=== PATIENT | male | born 1950 | race Caucasian/White ===

== ENCOUNTER 2019-08-02 08:20 | Inpatient (IN) ==
[2019-08-02] MEDS ORDERED: CeFAZolin Syr 2,000MG/20 ML 2,000 MG/20 ML SYRINGE IVPB ONE (08:42)
[2019-08-02] MEDS ORDERED: Ringers Solution, Lactated 1,000 ML IVC SCH ×2 (08:45→14:30)
[2019-08-02] MEDS ORDERED: Celecoxib 200 MG CAPSULE PO ONE (09:25)
[2019-08-02] MEDS ORDERED: Gabapentin 300 MG CAPSULE PO ONE (09:25)
[2019-08-02] MEDS ORDERED: Ondansetron 4 MG/2 ML VIAL IVP ONE (09:26)
[2019-08-02] MEDS ORDERED: *HR* Promethazine 25 MG/ML VIAL IVP PRN ×2 (09:26→14:30)
[2019-08-02] MEDS ORDERED: *HR* OxyCODONE Immed Rel 5 MG TABLET PO PRN ×2 (09:26→14:30)
[2019-08-02] MEDS ORDERED: *HR* OxyCODONE Immed Rel 5 MG TABLET PO ONE (09:26)
[2019-08-02] MEDS ORDERED: ROPIVACAINE/PF/NS 0.25% 1 EACH SYRINGE INTRAART ONE (09:39)
[2019-08-02] MEDS ORDERED: *HR* FentaNYL (PF) 100 MCG/2 ML VIAL ONE (10:08)
[2019-08-02] MEDS ORDERED: *HR* Midazolam HCl 2 MG/2 ML VIAL ONE (10:08)
[2019-08-02] MEDS ORDERED: Ethanol\\Acetic Acid\\Na Ace\\Ben 1,000 ML IRRIG.SOLN IR ONE (10:16)
[2019-08-02] MEDS ORDERED: Propofol 500 MG/50 ML INFUS..BTL ONE ×2 (10:33→11:48)
[2019-08-02] MEDS ORDERED: Tranexamic Acid 1,000 MG/10 ML VIAL ONE (11:11)
[2019-08-02] MEDS ORDERED: Dexamethasone 4 MG/ML VIAL ONE ×2 (11:22→11:23)
[2019-08-02] MEDS ORDERED: Ondansetron 4 MG/2 ML VIAL ONE (11:23)
[2019-08-02] MEDS ORDERED: *HR* PHENYLEPHRINE 1,000 MCG/10 ML SYRINGE IVP ONE ×2 (11:23→11:50)
[2019-08-02] MEDS ORDERED: EPHEDrine 50 MG/ML VIAL ONE (11:37)
[2019-08-02] MEDS: *HR* HYDROmorphone (PF) 1 MG/ML SYRINGE IVP PRN ×2 (13:07→13:15)
[2019-08-02 13:28] LABS: Hematocrit 38.9 % (37.5-50.1); Hemoglobin 13.2 g/dL (12.9-16.9)
[2019-08-02] MEDS ORDERED: traMADol 50 MG TABLET PO PRN (14:30)
[2019-08-02] MEDS ORDERED: MOM Conc 10 ML UD.LIQ PO PRN (14:30)
[2019-08-02] MEDS ORDERED: Sennosides 8.6 MG TABLET PO PRN (14:30)
[2019-08-02] MEDS ORDERED: Ondansetron 4 MG/2 ML VIAL IVP PRN (14:30)
[2019-08-02] MEDS ORDERED: Naloxone 0.4 MG/ML INJ IVP PRN (14:30)
[2019-08-02] MEDS ORDERED: Temazepam 15 MG CAPSULE PO PRN (14:30)
[2019-08-02] MEDS ORDERED: HYDROcodone BIT/Homatropine 5 MG TABLET PO PRN (14:30)
[2019-08-02] MEDS: Ascorbic Acid 500 MG TABLET PO SCH (17:30)
[2019-08-02] MEDS: *HR* Enoxaparin 30 MG/0.3 ML SYRINGE SQ SCH (17:30)
[2019-08-02] MEDS ORDERED: *HR* Enoxaparin 30 MG/0.3 ML SYRINGE SQ SCH (18:00)
[2019-08-02] MEDS ORDERED: Lisinopril 20 MG TABLET PO SCH (21:00)
[2019-08-02] MEDS ORDERED: amLODIPine 5 MG TABLET PO SCH (21:00)
[2019-08-03] MEDS: *HR* Enoxaparin 30 MG/0.3 ML SYRINGE SQ SCH (05:28)
[2019-08-03 05:44] LABS: Basophils % 0.2 %; Hematocrit 37.8 % (37.5-50.1); Immature Granulocytes % 0.6 % (0-4); Lymphocytes # 1.6 K/mcL (0.6-4.6); Lymphocytes % 12.4 %; Mean Corpuscular HGB Conc 34.4 g/dL (31.6-35.5); Mean Corpuscular Hemoglobin 30.6 pg (28.0-33.3); Mean Corpuscular Volume 88.9 fL (83.0-100.0); Mean Platelet Volume 11.6 fL (9.4-12.4); Monocytes % 7.3 %; Neutrophils # 10.4 K/mcL (1.6-8.9); Platelet Count 205 K/mcL (140-400); Red Blood Count 4.25 M/mcL (4.19-5.50); Red Cell Distribution Width 12.7 % (11.5-14.5); Segmented Neutrophils % 79.5 %; White Blood Count 13.1 K/mcL (4.3-11.1)
[2019-08-03 06:00] LABS: BUN/Creatinine Ratio 18 (6-26); Blood Urea Nitrogen 16 mg/dL (8-23); Calcium 9.1 mg/dL (8.6-10.3); Carbon Dioxide 22 mEq/L (23-29); Chloride 101 mEq/L (98-107); Glucose 170 mg/dL (70-105); Osmolality,Calculated 285 (280-300); Potassium 4.2 mEq/L (3.5-5.1); Sodium 135 mEq/L (136-145); eGFR For African Americans > 60 (> 60); eGFR For Non-African Americans > 60 (> 60)
[2019-08-03] MEDS: Ascorbic Acid 500 MG TABLET PO SCH (08:52)
[2019-08-03] MEDS ORDERED: Multivit/Ca/Min/Fe/FA 1 TAB TABLET PO SCH (09:00)
[2019-08-03 11:13] VITALS: BP 115/75
== END 2019-08-03 16:40 | disposition home health service (06) | DRG 470 ==
LOC: SAMDAY 08:20 → 3NENU 14:25
PROVIDERS: ADMIT Orthopaedic Surgery; ATTEND Orthopaedic Surgery

== ENCOUNTER 2021-12-17 11:15 | Inpatient (IN) ==
[2021-12-17 11:42] LABS: Basophils # 0.1 K/mcL (0.0-0.2); Basophils % 0.3 %; Eosinophils % 0.2 %; Hematocrit 46.5 % (37.5-50.1); Hemoglobin 15.8 g/dL (12.9-16.9); Immature Granulocytes % 1.7 % (0-4); Lymphocytes # 0.9 K/mcL (0.6-4.6); Lymphocytes % 5.3 %; Mean Corpuscular Hemoglobin 30.4 pg (28.0-33.3); Mean Corpuscular Volume 89.4 fL (83.0-100.0); Mean Platelet Volume 9.6 fL (9.4-12.4); Monocytes # 0.9 K/mcL (0.0-1.3); Monocytes % 5.3 %; Neutrophils # 14.5 K/mcL (1.6-8.9); Platelet Count 223 K/mcL (140-400); Segmented Neutrophils % 87.2 %; White Blood Count 16.6 K/mcL (4.3-11.1)
[2021-12-17 12:14] LABS: BUN/Creatinine Ratio 20 (6-26); Blood Urea Nitrogen 17 mg/dL (8-23); Calcium 8.6 mg/dL (8.6-10.3); Carbon Dioxide 26 mEq/L (23-29); Chloride 98 mEq/L (98-107); Glucose 161 mg/dL (70-105); Osmolality,Calculated 281 (280-300); Potassium 4.5 mEq/L (3.5-5.1); Sodium 133 mEq/L (136-145); Troponin I 0.09 ng/mL (< 0.04); eGFR For African Americans > 60 (> 60); eGFR For Non-African Americans > 60 (> 60)
[2021-12-17] MEDS ORDERED: Naloxone 0.4 MG/ML INJ IVP PRN (14:10)
[2021-12-17 14:43] LABS: C-Reactive Protein 152 mg/L (Less than 10); Ferritin 955 ng/mL (20-250); Lactate Dehydrogenase 382 Units/L (140-271)
[2021-12-17] MEDS ORDERED: Isovue-370 500 ML BOTTLE IVP ONE (15:00)
[2021-12-17] MEDS: Ipratropium 1 PUFF INHALER IH SCH ×3 (15:51→23:18)
[2021-12-17] MEDS ORDERED: *HR* Heparin 5,000 UNIT/ML VIAL IVP PRN ×2 (18:46)
[2021-12-17] MEDS ORDERED: *HR* Heparin 5,000 UNIT/ML VIAL IVP ONE (18:46)
[2021-12-17 19:16] LABS: Hematocrit 43.7 % (37.5-50.1); Mean Corpuscular HGB Conc 34.3 g/dL (31.6-35.5); Mean Corpuscular Hemoglobin 30.5 pg (28.0-33.3); Mean Platelet Volume 9.7 fL (9.4-12.4); Platelet Count 184 K/mcL (140-400); Red Blood Count 4.91 M/mcL (4.19-5.50); Red Cell Distribution Width 12.9 % (11.5-14.5); White Blood Count 12.2 K/mcL (4.3-11.1)
[2021-12-17 19:23] LABS: Heparin anti-factor XA UFH < 0.04 IU/mL (0.30-0.70)
[2021-12-17 19:24] LABS: INR 1.4
[2021-12-17] MEDS: Heparin 25,000UNIT/250ML 1/2NS 25,000 UNIT/250 ML IV.SOLN IVC SCH (20:08)
[2021-12-18 02:08] LABS: Basophils % 0.3 %; Eosinophils % 0.1 %; Hematocrit 42.9 % (37.5-50.1); Hemoglobin 14.6 g/dL (12.9-16.9); Immature Granulocytes % 1.5 % (0-4); Lymphocytes # 1.4 K/mcL (0.6-4.6); Lymphocytes % 10.6 %; Mean Corpuscular Hemoglobin 30.7 pg (28.0-33.3); Mean Corpuscular Volume 90.1 fL (83.0-100.0); Mean Platelet Volume 9.7 fL (9.4-12.4); Monocytes # 0.8 K/mcL (0.0-1.3); Monocytes % 5.5 %; Neutrophils # 11.2 K/mcL (1.6-8.9); Platelet Count 209 K/mcL (140-400); Red Blood Count 4.76 M/mcL (4.19-5.50); White Blood Count 13.6 K/mcL (4.3-11.1)
[2021-12-18 02:27] LABS: Alanine Aminotransferase 56 Units/L (7-52); Albumin 2.8 g/dL (3.5-5.7); Albumin/Globulin Ratio 0.8 (1.1-2.2); Alkaline Phosphatase 75 Units/L (34-104); Aspartate Amino Transferase 33 Units/L (13-39); BUN/Creatinine Ratio 25 (6-26); Blood Urea Nitrogen 19 mg/dL (8-23); Calcium 8.3 mg/dL (8.6-10.3); Carbon Dioxide 25 mEq/L (23-29); Chloride 101 mEq/L (98-107); Globulin 3.4 g/dL (2.4-3.5); Glucose 138 mg/dL (70-105); Osmolality,Calculated 280 (280-300); Potassium 4.6 mEq/L (3.5-5.1); Sodium 133 mEq/L (136-145); Total Protein 6.2 g/dL (6.4-8.9); eGFR For African Americans > 60 (> 60); eGFR For Non-African Americans > 60 (> 60)
[2021-12-18] MEDS: Ipratropium 1 PUFF INHALER IH SCH ×6 (04:16→23:31)
[2021-12-18] MEDS ORDERED: *HR* Enoxaparin 40 MG/0.4 ML SYRINGE SQ SCH (06:00)
[2021-12-18] MEDS: Heparin 25,000UNIT/250ML 1/2NS 25,000 UNIT/250 ML IV.SOLN IVC SCH (13:03)
[2021-12-18] MEDS: Apixaban 5 MG TABLET PO SCH (21:22)
[2021-12-19 02:32] LABS: Basophils % 0.2 %; Eosinophils # 0.1 K/mcL (0.0-0.6); Eosinophils % 0.4 %; Hematocrit 41.3 % (37.5-50.1); Hemoglobin 13.7 g/dL (12.9-16.9); Immature Granulocytes % 1.6 % (0-4); Lymphocytes # 1.8 K/mcL (0.6-4.6); Mean Corpuscular HGB Conc 33.2 g/dL (31.6-35.5); Mean Corpuscular Hemoglobin 29.7 pg (28.0-33.3); Mean Corpuscular Volume 89.4 fL (83.0-100.0); Monocytes % 7.2 %; Neutrophils # 10.6 K/mcL (1.6-8.9); Platelet Count 219 K/mcL (140-400); Red Blood Count 4.62 M/mcL (4.19-5.50); Red Cell Distribution Width 13.1 % (11.5-14.5); Segmented Neutrophils % 77.6 %; White Blood Count 13.7 K/mcL (4.3-11.1)
[2021-12-19 02:55] LABS: Alanine Aminotransferase 68 Units/L (7-52); Albumin 2.7 g/dL (3.5-5.7); Albumin/Globulin Ratio 0.9 (1.1-2.2); Alkaline Phosphatase 80 Units/L (34-104); Aspartate Amino Transferase 48 Units/L (13-39); BUN/Creatinine Ratio 27 (6-26); Bilirubin,Total 0.9 mg/dL (0.3-1.0); Blood Urea Nitrogen 20 mg/dL (8-23); C-Reactive Protein 76 mg/L (Less than 10); Calcium 8.1 mg/dL (8.6-10.3); Carbon Dioxide 23 mEq/L (23-29); Chloride 100 mEq/L (98-107); Glucose 109 mg/dL (70-105); Lactate Dehydrogenase 283 Units/L (140-271); Magnesium 2.2 mg/dL (1.6-2.6); Osmolality,Calculated 275 (280-300); Potassium 4.2 mEq/L (3.5-5.1); Sodium 131 mEq/L (136-145); Total Protein 5.7 g/dL (6.4-8.9); eGFR For African Americans > 60 (> 60); eGFR For Non-African Americans > 60 (> 60)
[2021-12-19 03:07] LABS: Ferritin 1045 ng/mL (20-250)
[2021-12-19] MEDS: Ipratropium 1 PUFF INHALER IH SCH ×6 (04:00→23:35)
[2021-12-19] MEDS: Apixaban 5 MG TABLET PO SCH ×2 (08:08→19:51)
[2021-12-19] MEDS ORDERED: Furosemide 20 MG/2 ML VIAL IVP SCH (09:00)
[2021-12-20 02:45] LABS: Basophils % 0.3 %; Eosinophils # 0.1 K/mcL (0.0-0.6); Eosinophils % 0.9 %; Hematocrit 39.9 % (37.5-50.1); Hemoglobin 13.7 g/dL (12.9-16.9); Immature Granulocytes % 1.4 % (0-4); Lymphocytes # 1.6 K/mcL (0.6-4.6); Lymphocytes % 12.7 %; Mean Corpuscular HGB Conc 34.3 g/dL (31.6-35.5); Mean Corpuscular Hemoglobin 30.6 pg (28.0-33.3); Mean Corpuscular Volume 89.1 fL (83.0-100.0); Mean Platelet Volume 9.6 fL (9.4-12.4); Monocytes # 0.9 K/mcL (0.0-1.3); Monocytes % 7.1 %; Neutrophils # 9.7 K/mcL (1.6-8.9); Platelet Count 223 K/mcL (140-400); Red Blood Count 4.48 M/mcL (4.19-5.50); Red Cell Distribution Width 12.9 % (11.5-14.5); Segmented Neutrophils % 77.6 %; White Blood Count 12.5 K/mcL (4.3-11.1)
[2021-12-20 03:04] LABS: Alanine Aminotransferase 79 Units/L (7-52); Albumin 2.8 g/dL (3.5-5.7); Albumin/Globulin Ratio 0.9 (1.1-2.2); Alkaline Phosphatase 77 Units/L (34-104); Aspartate Amino Transferase 47 Units/L (13-39); BUN/Creatinine Ratio 23 (6-26); Blood Urea Nitrogen 18 mg/dL (8-23); Calcium 8.3 mg/dL (8.6-10.3); Carbon Dioxide 26 mEq/L (23-29); Chloride 99 mEq/L (98-107); Globulin 3.1 g/dL (2.4-3.5); Glucose 126 mg/dL (70-105); Osmolality,Calculated 275 (280-300); Potassium 4.4 mEq/L (3.5-5.1); Sodium 131 mEq/L (136-145); Total Protein 5.9 g/dL (6.4-8.9); eGFR For African Americans > 60 (> 60); eGFR For Non-African Americans > 60 (> 60)
[2021-12-20] MEDS: Ipratropium 1 PUFF INHALER IH SCH ×6 (03:36→23:23)
[2021-12-20] MEDS: Apixaban 5 MG TABLET PO SCH ×2 (08:14→20:40)
[2021-12-20] MEDS: Furosemide 20 MG/2 ML VIAL IVP SCH ×2 (08:14→16:33)
[2021-12-21] MEDS: Ipratropium 1 PUFF INHALER IH SCH ×6 (03:47→23:47)
[2021-12-21 07:07] LABS: Basophils % 0.2 %; Eosinophils % 0.2 %; Hematocrit 40.8 % (37.5-50.1); Hemoglobin 14.2 g/dL (12.9-16.9); Immature Granulocytes % 1.6 % (0-4); Lymphocytes # 1.5 K/mcL (0.6-4.6); Mean Corpuscular HGB Conc 34.8 g/dL (31.6-35.5); Mean Corpuscular Hemoglobin 30.7 pg (28.0-33.3); Mean Corpuscular Volume 88.3 fL (83.0-100.0); Mean Platelet Volume 9.7 fL (9.4-12.4); Monocytes % 6.8 %; Neutrophils # 11.9 K/mcL (1.6-8.9); Platelet Count 252 K/mcL (140-400); Red Blood Count 4.62 M/mcL (4.19-5.50); Segmented Neutrophils % 81.2 %; White Blood Count 14.7 K/mcL (4.3-11.1)
[2021-12-21 07:28] LABS: Alanine Aminotransferase 91 Units/L (7-52); Albumin 2.8 g/dL (3.5-5.7); Albumin/Globulin Ratio 0.8 (1.1-2.2); Alkaline Phosphatase 71 Units/L (34-104); Aspartate Amino Transferase 47 Units/L (13-39); BUN/Creatinine Ratio 30 (6-26); Bilirubin,Total 0.9 mg/dL (0.3-1.0); Blood Urea Nitrogen 21 mg/dL (8-23); Calcium 8.6 mg/dL (8.6-10.3); Carbon Dioxide 25 mEq/L (23-29); Chloride 101 mEq/L (98-107); Globulin 3.3 g/dL (2.4-3.5); Glucose 130 mg/dL (70-105); Lactate Dehydrogenase 239 Units/L (140-271); Osmolality,Calculated 281 (280-300); Potassium 4.3 mEq/L (3.5-5.1); Sodium 133 mEq/L (136-145); Total Protein 6.1 g/dL (6.4-8.9); eGFR For African Americans > 60 (> 60); eGFR For Non-African Americans > 60 (> 60)
[2021-12-21] MEDS: Furosemide 20 MG/2 ML VIAL IVP SCH ×2 (07:38→16:59)
[2021-12-21] MEDS: Dexamethasone Sodium Phos/PF 10 MG/ML VIAL IVP SCH (07:38)
[2021-12-21] MEDS: Apixaban 5 MG TABLET PO SCH ×2 (07:39→21:04)
[2021-12-21 07:42] LABS: Ferritin 922 ng/mL (20-250)
[2021-12-21 10:19] LABS: C-Reactive Protein 80 mg/L (Less than 10)
[2021-12-22 02:17] LABS: Basophils # 0.1 K/mcL (0.0-0.2); Basophils % 0.5 %; Eosinophils % 0.2 %; Hematocrit 43.6 % (37.5-50.1); Hemoglobin 14.6 g/dL (12.9-16.9); Immature Granulocytes % 1.6 % (0-4); Lymphocytes % 12.2 %; Mean Corpuscular HGB Conc 33.5 g/dL (31.6-35.5); Mean Corpuscular Hemoglobin 29.8 pg (28.0-33.3); Mean Platelet Volume 9.9 fL (9.4-12.4); Monocytes # 1.1 K/mcL (0.0-1.3); Monocytes % 6.3 %; Neutrophils # 13.2 K/mcL (1.6-8.9); Platelet Count 282 K/mcL (140-400); Segmented Neutrophils % 79.2 %; White Blood Count 16.7 K/mcL (4.3-11.1)
[2021-12-22 02:35] LABS: Alanine Aminotransferase 128 Units/L (7-52); Albumin 2.8 g/dL (3.5-5.7); Albumin/Globulin Ratio 0.8 (1.1-2.2); Alkaline Phosphatase 76 Units/L (34-104); Aspartate Amino Transferase 70 Units/L (13-39); BUN/Creatinine Ratio 38 (6-26); Bilirubin,Total 0.9 mg/dL (0.3-1.0); Blood Urea Nitrogen 31 mg/dL (8-23); Calcium 8.7 mg/dL (8.6-10.3); Carbon Dioxide 25 mEq/L (23-29); Chloride 98 mEq/L (98-107); Globulin 3.4 g/dL (2.4-3.5); Glucose 109 mg/dL (70-105); Osmolality,Calculated 279 (280-300); Potassium 4.2 mEq/L (3.5-5.1); Sodium 131 mEq/L (136-145); Total Protein 6.2 g/dL (6.4-8.9); eGFR For African Americans > 60 (> 60); eGFR For Non-African Americans > 60 (> 60)
[2021-12-22] MEDS: Ipratropium 1 PUFF INHALER IH SCH ×6 (03:59→23:49)
[2021-12-22] MEDS: Furosemide 20 MG/2 ML VIAL IVP SCH ×2 (08:49→16:52)
[2021-12-22] MEDS: Apixaban 5 MG TABLET PO SCH ×2 (08:49→20:44)
[2021-12-22] MEDS: Dexamethasone Sodium Phos/PF 10 MG/ML VIAL IVP SCH (08:51)
[2021-12-23 02:53] LABS: Basophils % 0.3 %; Eosinophils % 0.1 %; Hematocrit 42.8 % (37.5-50.1); Hemoglobin 14.8 g/dL (12.9-16.9); Immature Granulocytes % 1.7 % (0-4); Lymphocytes # 1.8 K/mcL (0.6-4.6); Lymphocytes % 11.6 %; Mean Corpuscular HGB Conc 34.6 g/dL (31.6-35.5); Mean Corpuscular Hemoglobin 30.5 pg (28.0-33.3); Mean Corpuscular Volume 88.2 fL (83.0-100.0); Mean Platelet Volume 9.7 fL (9.4-12.4); Monocytes % 6.4 %; Neutrophils # 12.4 K/mcL (1.6-8.9); Platelet Count 302 K/mcL (140-400); Red Blood Count 4.85 M/mcL (4.19-5.50); Red Cell Distribution Width 13.1 % (11.5-14.5); Segmented Neutrophils % 79.9 %; White Blood Count 15.5 K/mcL (4.3-11.1)
[2021-12-23 03:14] LABS: Alanine Aminotransferase 184 Units/L (7-52); Albumin 2.9 g/dL (3.5-5.7); Albumin/Globulin Ratio 0.9 (1.1-2.2); Alkaline Phosphatase 75 Units/L (34-104); Aspartate Amino Transferase 82 Units/L (13-39); BUN/Creatinine Ratio 35 (6-26); Bilirubin,Total 0.9 mg/dL (0.3-1.0); Blood Urea Nitrogen 31 mg/dL (8-23); C-Reactive Protein 44 mg/L (Less than 10); Calcium 8.5 mg/dL (8.6-10.3); Carbon Dioxide 25 mEq/L (23-29); Chloride 100 mEq/L (98-107); Globulin 3.4 g/dL (2.4-3.5); Glucose 132 mg/dL (70-105); Lactate Dehydrogenase 279 Units/L (140-271); Osmolality,Calculated 282 (280-300); Potassium 4.3 mEq/L (3.5-5.1); Sodium 132 mEq/L (136-145); Total Protein 6.3 g/dL (6.4-8.9); eGFR For African Americans > 60 (> 60); eGFR For Non-African Americans > 60 (> 60)
[2021-12-23 03:30] LABS: Ferritin 883 ng/mL (20-250)
[2021-12-23] MEDS: Ipratropium 1 PUFF INHALER IH SCH ×5 (03:32→20:41)
[2021-12-23] MEDS: Apixaban 5 MG TABLET PO SCH ×2 (08:52→21:25)
[2021-12-23] MEDS: Furosemide 20 MG/2 ML VIAL IVP SCH ×2 (08:52→17:28)
[2021-12-23] MEDS: Dexamethasone Sodium Phos/PF 10 MG/ML VIAL IVP SCH (08:53)
[2021-12-24] MEDS: Ipratropium 1 PUFF INHALER IH SCH ×6 (00:01→20:11)
[2021-12-24 01:43] LABS: Basophils # 0.1 K/mcL (0.0-0.2); Basophils % 0.3 %; Eosinophils % 0.1 %; Hematocrit 43.2 % (37.5-50.1); Hemoglobin 14.7 g/dL (12.9-16.9); Immature Granulocytes % 1.7 % (0-4); Lymphocytes # 1.8 K/mcL (0.6-4.6); Lymphocytes % 11.4 %; Mean Corpuscular Hemoglobin 29.6 pg (28.0-33.3); Mean Corpuscular Volume 87.1 fL (83.0-100.0); Mean Platelet Volume 9.7 fL (9.4-12.4); Monocytes % 6.2 %; Neutrophils # 12.6 K/mcL (1.6-8.9); Platelet Count 308 K/mcL (140-400); Red Blood Count 4.96 M/mcL (4.19-5.50); Red Cell Distribution Width 13.1 % (11.5-14.5); Segmented Neutrophils % 80.3 %; White Blood Count 15.6 K/mcL (4.3-11.1)
[2021-12-24 02:04] LABS: Alanine Aminotransferase 222 Units/L (7-52); Albumin 2.9 g/dL (3.5-5.7); Albumin/Globulin Ratio 0.9 (1.1-2.2); Alkaline Phosphatase 74 Units/L (34-104); Aspartate Amino Transferase 79 Units/L (13-39); BUN/Creatinine Ratio 40 (6-26); Bilirubin,Total 0.7 mg/dL (0.3-1.0); Blood Urea Nitrogen 34 mg/dL (8-23); Calcium 8.5 mg/dL (8.6-10.3); Carbon Dioxide 25 mEq/L (23-29); Chloride 97 mEq/L (98-107); Globulin 3.4 g/dL (2.4-3.5); Glucose 142 mg/dL (70-105); Osmolality,Calculated 284 (280-300); Potassium 4.4 mEq/L (3.5-5.1); Sodium 132 mEq/L (136-145); Total Protein 6.3 g/dL (6.4-8.9); eGFR For African Americans > 60 (> 60); eGFR For Non-African Americans > 60 (> 60)
[2021-12-24] MEDS: Furosemide 20 MG/2 ML VIAL IVP SCH ×2 (09:21→18:12)
[2021-12-24] MEDS: Dexamethasone Sodium Phos/PF 10 MG/ML VIAL IVP SCH (09:22)
[2021-12-24] MEDS: Apixaban 5 MG TABLET PO SCH ×2 (09:22→22:18)
[2021-12-25] MEDS: Ipratropium 1 PUFF INHALER IH SCH ×7 (00:14→23:30)
[2021-12-25 05:01] LABS: Basophils # 0.1 K/mcL (0.0-0.2); Basophils % 0.3 %; Eosinophils % 0.3 %; Hematocrit 46.1 % (37.5-50.1); Hemoglobin 15.3 g/dL (12.9-16.9); Immature Granulocytes % 2.2 % (0-4); Lymphocytes # 2.5 K/mcL (0.6-4.6); Lymphocytes % 17.4 %; Mean Corpuscular HGB Conc 33.2 g/dL (31.6-35.5); Mean Corpuscular Hemoglobin 29.8 pg (28.0-33.3); Mean Corpuscular Volume 89.9 fL (83.0-100.0); Mean Platelet Volume 9.6 fL (9.4-12.4); Monocytes % 6.6 %; Neutrophils # 10.5 K/mcL (1.6-8.9); Platelet Count 283 K/mcL (140-400); Red Blood Count 5.13 M/mcL (4.19-5.50); Red Cell Distribution Width 13.2 % (11.5-14.5); Segmented Neutrophils % 73.2 %; White Blood Count 14.3 K/mcL (4.3-11.1)
[2021-12-25 05:20] LABS: Alanine Aminotransferase 239 Units/L (7-52); Albumin 2.9 g/dL (3.5-5.7); Albumin/Globulin Ratio 0.9 (1.1-2.2); Alkaline Phosphatase 84 Units/L (34-104); Aspartate Amino Transferase 80 Units/L (13-39); BUN/Creatinine Ratio 31 (6-26); Bilirubin,Total 0.8 mg/dL (0.3-1.0); Blood Urea Nitrogen 33 mg/dL (8-23); Calcium 8.9 mg/dL (8.6-10.3); Carbon Dioxide 30 mEq/L (23-29); Chloride 97 mEq/L (98-107); Globulin 3.3 g/dL (2.4-3.5); Glucose 114 mg/dL (70-105); Osmolality,Calculated 288 (280-300); Potassium 5.1 mEq/L (3.5-5.1); Sodium 135 mEq/L (136-145); Total Protein 6.2 g/dL (6.4-8.9); eGFR For African Americans > 60 (> 60); eGFR For Non-African Americans > 60 (> 60)
[2021-12-25] MEDS: Furosemide 20 MG/2 ML VIAL IVP SCH ×2 (08:44→17:43)
[2021-12-25] MEDS: Apixaban 5 MG TABLET PO SCH ×2 (08:45→19:39)
[2021-12-25] MEDS ORDERED: Dexamethasone Sodium Phos/PF 10 MG/ML VIAL IVP SCH (09:00)
[2021-12-26 02:40] LABS: Basophils # 0.1 K/mcL (0.0-0.2); Basophils % 0.5 %; Eosinophils # 0.1 K/mcL (0.0-0.6); Eosinophils % 0.6 %; Hemoglobin 15.5 g/dL (12.9-16.9); Immature Granulocytes % 2.3 % (0-4); Lymphocytes # 2.6 K/mcL (0.6-4.6); Lymphocytes % 17.4 %; Mean Corpuscular Hemoglobin 30.1 pg (28.0-33.3); Mean Corpuscular Volume 91.3 fL (83.0-100.0); Mean Platelet Volume 10.5 fL (9.4-12.4); Monocytes # 0.9 K/mcL (0.0-1.3); Monocytes % 5.7 %; Platelet Count 257 K/mcL (140-400); Red Blood Count 5.15 M/mcL (4.19-5.50); Red Cell Distribution Width 13.4 % (11.5-14.5); Segmented Neutrophils % 73.5 %
[2021-12-26 02:44] LABS: Alanine Aminotransferase 227 Units/L (7-52); Albumin 2.9 g/dL (3.5-5.7); Albumin/Globulin Ratio 0.9 (1.1-2.2); Alkaline Phosphatase 80 Units/L (34-104); Aspartate Amino Transferase 69 Units/L (13-39); BUN/Creatinine Ratio 34 (6-26); Bilirubin,Total 0.8 mg/dL (0.3-1.0); Blood Urea Nitrogen 32 mg/dL (8-23); C-Reactive Protein 19 mg/L (Less than 10); Calcium 8.6 mg/dL (8.6-10.3); Carbon Dioxide 25 mEq/L (23-29); Chloride 99 mEq/L (98-107); Globulin 3.3 g/dL (2.4-3.5); Glucose 113 mg/dL (70-105); Lactate Dehydrogenase 313 Units/L (140-271); Osmolality,Calculated 284 (280-300); Potassium 4.4 mEq/L (3.5-5.1); Sodium 133 mEq/L (136-145); Total Protein 6.2 g/dL (6.4-8.9); eGFR For African Americans > 60 (> 60); eGFR For Non-African Americans > 60 (> 60)
[2021-12-26 03:01] LABS: Ferritin 1084 ng/mL (20-250)
[2021-12-26] MEDS: Ipratropium 1 PUFF INHALER IH SCH ×6 (04:09→23:51)
[2021-12-26] MEDS: Furosemide 20 MG/2 ML VIAL IVP SCH ×2 (09:15→18:07)
[2021-12-26] MEDS: Apixaban 5 MG TABLET PO SCH ×2 (09:15→19:38)
[2021-12-26] MEDS ORDERED: Vancomycin 1,500 MG/265 ML IV.SOLN IVPB ONE (12:06)
[2021-12-26] MEDS: Piperacillin/Tazobactam 3.375 GM in 0.9 % Sodium Chloride Mini Bag 100 ML IVPB SCH ×3 (12:48→18:07)
[2021-12-27] MEDS: Vancomycin 1,250 MG/262.5 ML IV.SOLN IVPB SCH ×2 (01:57→13:10)
[2021-12-27] MEDS: Piperacillin/Tazobactam 3.375 GM in 0.9 % Sodium Chloride Mini Bag 100 ML IVPB SCH ×3 (01:59→16:15)
[2021-12-27] MEDS: Ipratropium 1 PUFF INHALER IH SCH ×6 (04:31→23:45)
[2021-12-27 05:45] LABS: Basophils % 0.3 %; Eosinophils # 0.2 K/mcL (0.0-0.6); Eosinophils % 1.1 %; Hematocrit 43.2 % (37.5-50.1); Hemoglobin 14.8 g/dL (12.9-16.9); Immature Granulocytes % 1.8 % (0-4); Lymphocytes # 2.7 K/mcL (0.6-4.6); Mean Corpuscular HGB Conc 34.3 g/dL (31.6-35.5); Mean Corpuscular Hemoglobin 30.3 pg (28.0-33.3); Mean Corpuscular Volume 88.5 fL (83.0-100.0); Mean Platelet Volume 9.5 fL (9.4-12.4); Monocytes # 0.8 K/mcL (0.0-1.3); Monocytes % 5.4 %; Neutrophils # 10.2 K/mcL (1.6-8.9); Platelet Count 265 K/mcL (140-400); Red Blood Count 4.88 M/mcL (4.19-5.50); Red Cell Distribution Width 13.2 % (11.5-14.5); Segmented Neutrophils % 72.4 %; White Blood Count 14.1 K/mcL (4.3-11.1)
[2021-12-27 06:06] LABS: Alanine Aminotransferase 211 Units/L (7-52); Albumin 2.9 g/dL (3.5-5.7); Alkaline Phosphatase 77 Units/L (34-104); Aspartate Amino Transferase 63 Units/L (13-39); BUN/Creatinine Ratio 31 (6-26); Bilirubin,Total 1.1 mg/dL (0.3-1.0); Blood Urea Nitrogen 32 mg/dL (8-23); Calcium 8.1 mg/dL (8.6-10.3); Carbon Dioxide 28 mEq/L (23-29); Chloride 99 mEq/L (98-107); Globulin 2.9 g/dL (2.4-3.5); Glucose 112 mg/dL (70-105); Osmolality,Calculated 284 (280-300); Potassium 4.2 mEq/L (3.5-5.1); Sodium 133 mEq/L (136-145); Total Protein 5.8 g/dL (6.4-8.9); eGFR For African Americans > 60 (> 60); eGFR For Non-African Americans > 60 (> 60)
[2021-12-27] MEDS: Apixaban 5 MG TABLET PO SCH ×2 (09:08→20:22)
[2021-12-27] MEDS: Furosemide 20 MG/2 ML VIAL IVP SCH ×2 (09:09→16:14)
[2021-12-28 00:28] LABS: Basophils # 0.1 K/mcL (0.0-0.2); Basophils % 0.3 %; Eosinophils # 0.1 K/mcL (0.0-0.6); Eosinophils % 0.3 %; Hematocrit 43.1 % (37.5-50.1); Hemoglobin 14.8 g/dL (12.9-16.9); Immature Granulocytes % 1.7 % (0-4); Lymphocytes # 2.4 K/mcL (0.6-4.6); Lymphocytes % 15.6 %; Mean Corpuscular HGB Conc 34.3 g/dL (31.6-35.5); Mean Corpuscular Hemoglobin 30.5 pg (28.0-33.3); Mean Corpuscular Volume 88.9 fL (83.0-100.0); Mean Platelet Volume 9.7 fL (9.4-12.4); Monocytes # 0.9 K/mcL (0.0-1.3); Monocytes % 5.9 %; Neutrophils # 11.8 K/mcL (1.6-8.9); Platelet Count 276 K/mcL (140-400); Red Blood Count 4.85 M/mcL (4.19-5.50); Red Cell Distribution Width 13.2 % (11.5-14.5); Segmented Neutrophils % 76.2 %; White Blood Count 15.5 K/mcL (4.3-11.1)
[2021-12-28 00:48] LABS: Alanine Aminotransferase 208 Units/L (7-52); Albumin 2.9 g/dL (3.5-5.7); Alkaline Phosphatase 77 Units/L (34-104); Aspartate Amino Transferase 61 Units/L (13-39); BUN/Creatinine Ratio 28 (6-26); Bilirubin,Total 0.8 mg/dL (0.3-1.0); Blood Urea Nitrogen 31 mg/dL (8-23); Calcium 8.3 mg/dL (8.6-10.3); Carbon Dioxide 27 mEq/L (23-29); Chloride 100 mEq/L (98-107); Glucose 152 mg/dL (70-105); Osmolality,Calculated 288 (280-300); Sodium 134 mEq/L (136-145); Total Protein 5.9 g/dL (6.4-8.9); eGFR For African Americans > 60 (> 60); eGFR For Non-African Americans > 60 (> 60)
[2021-12-28] MEDS: Piperacillin/Tazobactam 3.375 GM in 0.9 % Sodium Chloride Mini Bag 100 ML IVPB SCH ×3 (01:16→16:47)
[2021-12-28] MEDS: Vancomycin 1,250 MG/262.5 ML IV.SOLN IVPB SCH ×2 (01:17→11:57)
[2021-12-28] MEDS: Ipratropium 1 PUFF INHALER IH SCH ×5 (03:55→20:14)
[2021-12-28] MEDS: Apixaban 5 MG TABLET PO SCH ×2 (07:33→22:02)
[2021-12-28] MEDS: Furosemide 20 MG/2 ML VIAL IVP SCH ×2 (07:33→16:46)
[2021-12-28] MEDS: Ipratropium/Albuterol Neb 3 ML IH SCH (23:38)
[2021-12-29] MEDS: Piperacillin/Tazobactam 3.375 GM in 0.9 % Sodium Chloride Mini Bag 100 ML IVPB SCH ×3 (00:33→18:18)
[2021-12-29] MEDS: Vancomycin 1,250 MG/262.5 ML IV.SOLN IVPB SCH (00:33)
[2021-12-29 03:32] LABS: Hematocrit 42.3 % (37.5-50.1); Hemoglobin 14.4 g/dL (12.9-16.9); Mean Corpuscular Hemoglobin 30.4 pg (28.0-33.3); Mean Corpuscular Volume 89.4 fL (83.0-100.0); Mean Platelet Volume 9.9 fL (9.4-12.4); Platelet Count 258 K/mcL (140-400); Red Blood Count 4.73 M/mcL (4.19-5.50); Red Cell Distribution Width 13.3 % (11.5-14.5); White Blood Count 14.7 K/mcL (4.3-11.1)
[2021-12-29 03:47] LABS: D-Dimer 3200 ng/mLFEU (0-500); Fibrinogen 387 mg/dL (169-393)
[2021-12-29 03:55] LABS: Alanine Aminotransferase 195 Units/L (7-52); Albumin 2.8 g/dL (3.5-5.7); Alkaline Phosphatase 76 Units/L (34-104); Aspartate Amino Transferase 59 Units/L (13-39); BUN/Creatinine Ratio 26 (6-26); Bilirubin,Total 0.8 mg/dL (0.3-1.0); Blood Urea Nitrogen 24 mg/dL (8-23); C-Reactive Protein 7 mg/L (Less than 10); Calcium 8.1 mg/dL (8.6-10.3); Carbon Dioxide 25 mEq/L (23-29); Chloride 101 mEq/L (98-107); Globulin 2.8 g/dL (2.4-3.5); Glucose 148 mg/dL (70-105); Lactate Dehydrogenase 233 Units/L (140-271); Osmolality,Calculated 289 (280-300); Potassium 3.3 mEq/L (3.5-5.1); Sodium 136 mEq/L (136-145); Total Protein 5.6 g/dL (6.4-8.9); eGFR For African Americans > 60 (> 60); eGFR For Non-African Americans > 60 (> 60)
[2021-12-29] MEDS: Ipratropium/Albuterol Neb 3 ML IH SCH ×6 (04:01→23:23)
[2021-12-29 04:12] LABS: Ferritin 1035 ng/mL (20-250)
[2021-12-29] MEDS: Furosemide 20 MG/2 ML VIAL IVP SCH ×2 (10:18→18:14)
[2021-12-29] MEDS: Apixaban 5 MG TABLET PO SCH ×2 (10:19→21:20)
[2021-12-30] MEDS: Piperacillin/Tazobactam 3.375 GM in 0.9 % Sodium Chloride Mini Bag 100 ML IVPB SCH ×3 (00:09→20:25)
[2021-12-30 03:02] LABS: Hematocrit 42.7 % (37.5-50.1); Hemoglobin 14.5 g/dL (12.9-16.9); Mean Corpuscular Hemoglobin 30.1 pg (28.0-33.3); Mean Corpuscular Volume 88.8 fL (83.0-100.0); Mean Platelet Volume 9.9 fL (9.4-12.4); Platelet Count 265 K/mcL (140-400); Red Blood Count 4.81 M/mcL (4.19-5.50); Red Cell Distribution Width 13.6 % (11.5-14.5); White Blood Count 14.7 K/mcL (4.3-11.1)
[2021-12-30 03:24] LABS: Alanine Aminotransferase 176 Units/L (7-52); Albumin 2.9 g/dL (3.5-5.7); Albumin/Globulin Ratio 1.1 (1.1-2.2); Alkaline Phosphatase 77 Units/L (34-104); Aspartate Amino Transferase 49 Units/L (13-39); BUN/Creatinine Ratio 23 (6-26); Bilirubin,Total 0.8 mg/dL (0.3-1.0); Blood Urea Nitrogen 23 mg/dL (8-23); Calcium 8.3 mg/dL (8.6-10.3); Carbon Dioxide 26 mEq/L (23-29); Chloride 102 mEq/L (98-107); Globulin 2.7 g/dL (2.4-3.5); Glucose 118 mg/dL (70-105); Osmolality,Calculated 289 (280-300); Potassium 4.1 mEq/L (3.5-5.1); Sodium 137 mEq/L (136-145); Total Protein 5.6 g/dL (6.4-8.9); eGFR For African Americans > 60 (> 60); eGFR For Non-African Americans > 60 (> 60)
[2021-12-30] MEDS: Ipratropium/Albuterol Neb 3 ML IH SCH ×5 (04:07→20:12)
[2021-12-30] MEDS: Apixaban 5 MG TABLET PO SCH ×2 (10:01→21:41)
[2021-12-30] MEDS: dexAMETHasone 4 MG TABLET PO SCH (10:01)
[2021-12-30] MEDS: Furosemide 20 MG/2 ML VIAL IVP SCH (10:02)
[2021-12-31] MEDS: Piperacillin/Tazobactam 3.375 GM in 0.9 % Sodium Chloride Mini Bag 100 ML IVPB SCH ×3 (00:09→17:47)
[2021-12-31] MEDS: Ipratropium/Albuterol Neb 3 ML IH SCH ×7 (00:32→23:43)
[2021-12-31] MEDS: Furosemide 20 MG/2 ML VIAL IVP SCH ×3 (00:38→17:47)
[2021-12-31 06:24] LABS: Fibrinogen 343 mg/dL (169-393)
[2021-12-31 06:25] LABS: D-Dimer 1828 ng/mLFEU (0-500)
[2021-12-31 06:37] LABS: Hematocrit 41.2 % (37.5-50.1); Hemoglobin 13.9 g/dL (12.9-16.9); Mean Corpuscular HGB Conc 33.7 g/dL (31.6-35.5); Mean Corpuscular Volume 88.8 fL (83.0-100.0); Mean Platelet Volume 10.1 fL (9.4-12.4); Platelet Count 268 K/mcL (140-400); Red Blood Count 4.64 M/mcL (4.19-5.50); Red Cell Distribution Width 13.8 % (11.5-14.5); White Blood Count 14.4 K/mcL (4.3-11.1)
[2021-12-31 08:19] LABS: Alanine Aminotransferase 134 Units/L (7-52); Albumin 2.8 g/dL (3.5-5.7); Albumin/Globulin Ratio 1.2 (1.1-2.2); Alkaline Phosphatase 69 Units/L (34-104); Aspartate Amino Transferase 37 Units/L (13-39); BUN/Creatinine Ratio 29 (6-26); Bilirubin,Total 0.7 mg/dL (0.3-1.0); Blood Urea Nitrogen 24 mg/dL (8-23); Carbon Dioxide 23 mEq/L (23-29); Chloride 103 mEq/L (98-107); Ferritin 908 ng/mL (20-250); Globulin 2.4 g/dL (2.4-3.5); Glucose 108 mg/dL (70-105); Lactate Dehydrogenase 286 Units/L (140-271); Osmolality,Calculated 285 (280-300); Potassium 3.7 mEq/L (3.5-5.1); Sodium 135 mEq/L (136-145); Total Protein 5.2 g/dL (6.4-8.9); eGFR For African Americans > 60 (> 60); eGFR For Non-African Americans > 60 (> 60)
[2021-12-31] MEDS: dexAMETHasone 4 MG TABLET PO SCH (08:48)
[2021-12-31] MEDS: Apixaban 5 MG TABLET PO SCH ×2 (08:48→21:26)
[2021-12-31 09:43] LABS: C-Reactive Protein 10 mg/L (Less than 10)
[2021-12-31] MEDS ORDERED: polyethylene glycoL 3350 17 GM POWD.PACK PO PRN (14:50)
[2022-01-01] MEDS: Piperacillin/Tazobactam 3.375 GM in 0.9 % Sodium Chloride Mini Bag 100 ML IVPB SCH ×3 (00:42→16:11)
[2022-01-01] MEDS: Ipratropium/Albuterol Neb 3 ML IH SCH ×6 (03:45→23:45)
[2022-01-01 05:49] LABS: Basophils % 0.2 %; Eosinophils # 0.2 K/mcL (0.0-0.6); Eosinophils % 1.1 %; Hematocrit 42.6 % (37.5-50.1); Hemoglobin 14.5 g/dL (12.9-16.9); Immature Granulocytes % 1.6 % (0-4); Lymphocytes % 21.7 %; Mean Corpuscular Hemoglobin 30.3 pg (28.0-33.3); Mean Corpuscular Volume 89.1 fL (83.0-100.0); Mean Platelet Volume 10.4 fL (9.4-12.4); Monocytes # 0.9 K/mcL (0.0-1.3); Monocytes % 6.6 %; Neutrophils # 9.4 K/mcL (1.6-8.9); Platelet Count 270 K/mcL (140-400); Red Blood Count 4.78 M/mcL (4.19-5.50); Red Cell Distribution Width 13.7 % (11.5-14.5); Segmented Neutrophils % 68.8 %; White Blood Count 13.7 K/mcL (4.3-11.1)
[2022-01-01 06:11] LABS: Alanine Aminotransferase 139 Units/L (7-52); Albumin/Globulin Ratio 1.2 (1.1-2.2); Alkaline Phosphatase 73 Units/L (34-104); Aspartate Amino Transferase 48 Units/L (13-39); BUN/Creatinine Ratio 28 (6-26); Bilirubin,Total 0.9 mg/dL (0.3-1.0); Blood Urea Nitrogen 27 mg/dL (8-23); Calcium 8.3 mg/dL (8.6-10.3); Carbon Dioxide 27 mEq/L (23-29); Chloride 100 mEq/L (98-107); Globulin 2.5 g/dL (2.4-3.5); Glucose 103 mg/dL (70-105); Osmolality,Calculated 289 (280-300); Potassium 3.7 mEq/L (3.5-5.1); Sodium 137 mEq/L (136-145); Total Protein 5.5 g/dL (6.4-8.9); eGFR For African Americans > 60 (> 60); eGFR For Non-African Americans > 60 (> 60)
[2022-01-01] MEDS: dexAMETHasone 4 MG TABLET PO SCH (07:51)
[2022-01-01] MEDS: Furosemide 20 MG/2 ML VIAL IVP SCH ×2 (07:51→16:11)
[2022-01-01] MEDS: Apixaban 5 MG TABLET PO SCH ×2 (07:51→21:07)
[2022-01-01] MEDS: polyethylene glycoL 3350 17 GM POWD.PACK PO SCH (07:52)
[2022-01-01] MEDS ORDERED: Isovue-370 500 ML BOTTLE IVP ONE (08:29)
[2022-01-01] MEDS ORDERED: Milk and Molasses Enema 200 ML RC ONE (10:50)
[2022-01-01] MEDS: Acetaminophen 325 MG TABLET PO PRN (21:07)
[2022-01-02] MEDS: Ipratropium/Albuterol Neb 3 ML IH SCH ×6 (04:07→23:31)
[2022-01-02 08:05] LABS: Basophils # 0.1 K/mcL (0.0-0.2); Basophils % 0.5 %; Eosinophils # 0.2 K/mcL (0.0-0.6); Eosinophils % 1.7 %; Hematocrit 42.9 % (37.5-50.1); Hemoglobin 14.4 g/dL (12.9-16.9); Immature Granulocytes % 1.8 % (0-4); Lymphocytes # 3.1 K/mcL (0.6-4.6); Lymphocytes % 25.7 %; Mean Corpuscular HGB Conc 33.6 g/dL (31.6-35.5); Mean Corpuscular Hemoglobin 30.1 pg (28.0-33.3); Mean Corpuscular Volume 89.6 fL (83.0-100.0); Mean Platelet Volume 10.3 fL (9.4-12.4); Monocytes # 0.8 K/mcL (0.0-1.3); Monocytes % 6.3 %; Neutrophils # 7.6 K/mcL (1.6-8.9); Platelet Count 240 K/mcL (140-400); Red Blood Count 4.79 M/mcL (4.19-5.50); Red Cell Distribution Width 13.8 % (11.5-14.5); White Blood Count 11.9 K/mcL (4.3-11.1)
[2022-01-02 08:20] LABS: Alanine Aminotransferase 125 Units/L (7-52); Albumin 2.8 g/dL (3.5-5.7); Albumin/Globulin Ratio 1.2 (1.1-2.2); Alkaline Phosphatase 65 Units/L (34-104); Aspartate Amino Transferase 45 Units/L (13-39); BUN/Creatinine Ratio 25 (6-26); Blood Urea Nitrogen 22 mg/dL (8-23); Calcium 8.2 mg/dL (8.6-10.3); Carbon Dioxide 30 mEq/L (23-29); Chloride 100 mEq/L (98-107); Globulin 2.4 g/dL (2.4-3.5); Glucose 100 mg/dL (70-105); Osmolality,Calculated 283 (280-300); Potassium 3.8 mEq/L (3.5-5.1); Sodium 135 mEq/L (136-145); Total Protein 5.2 g/dL (6.4-8.9); eGFR For African Americans > 60 (> 60); eGFR For Non-African Americans > 60 (> 60)
[2022-01-02] MEDS: Apixaban 5 MG TABLET PO SCH ×2 (08:38→20:34)
[2022-01-02] MEDS: dexAMETHasone 4 MG TABLET PO SCH (08:38)
[2022-01-02] MEDS: polyethylene glycoL 3350 17 GM POWD.PACK PO SCH (08:39)
[2022-01-02] MEDS: Furosemide 20 MG/2 ML VIAL IVP SCH ×2 (08:39→17:11)
[2022-01-03] MEDS: Ipratropium/Albuterol Neb 3 ML IH SCH ×5 (03:44→19:57)
[2022-01-03 06:09] LABS: Basophils % 0.3 %; Eosinophils # 0.2 K/mcL (0.0-0.6); Eosinophils % 1.8 %; Hematocrit 40.1 % (37.5-50.1); Hemoglobin 13.8 g/dL (12.9-16.9); Immature Granulocytes % 1.5 % (0-4); Lymphocytes % 25.9 %; Mean Corpuscular HGB Conc 34.4 g/dL (31.6-35.5); Mean Corpuscular Hemoglobin 30.7 pg (28.0-33.3); Mean Corpuscular Volume 89.1 fL (83.0-100.0); Mean Platelet Volume 10.3 fL (9.4-12.4); Monocytes # 0.8 K/mcL (0.0-1.3); Monocytes % 6.6 %; Neutrophils # 7.5 K/mcL (1.6-8.9); Platelet Count 215 K/mcL (140-400); Red Cell Distribution Width 13.8 % (11.5-14.5); Segmented Neutrophils % 63.9 %; White Blood Count 11.7 K/mcL (4.3-11.1)
[2022-01-03 06:29] LABS: Alanine Aminotransferase 112 Units/L (7-52); Albumin 2.8 g/dL (3.5-5.7); Albumin/Globulin Ratio 1.2 (1.1-2.2); Alkaline Phosphatase 58 Units/L (34-104); Aspartate Amino Transferase 43 Units/L (13-39); BUN/Creatinine Ratio 27 (6-26); Blood Urea Nitrogen 24 mg/dL (8-23); Calcium 8.2 mg/dL (8.6-10.3); Carbon Dioxide 30 mEq/L (23-29); Chloride 98 mEq/L (98-107); Globulin 2.4 g/dL (2.4-3.5); Glucose 105 mg/dL (70-105); Osmolality,Calculated 280 (280-300); Potassium 4.1 mEq/L (3.5-5.1); Sodium 133 mEq/L (136-145); Total Protein 5.2 g/dL (6.4-8.9); eGFR For African Americans > 60 (> 60); eGFR For Non-African Americans > 60 (> 60)
[2022-01-03] MEDS: Furosemide 20 MG/2 ML VIAL IVP SCH ×2 (07:57→17:29)
[2022-01-03] MEDS: dexAMETHasone 4 MG TABLET PO SCH (07:58)
[2022-01-03] MEDS: Apixaban 5 MG TABLET PO SCH ×2 (07:59→20:00)
[2022-01-03] MEDS: polyethylene glycoL 3350 17 GM POWD.PACK PO SCH (07:59)
[2022-01-03] MEDS: Acetaminophen 325 MG TABLET PO PRN (20:00)
[2022-01-04] MEDS: Ipratropium/Albuterol Neb 3 ML IH SCH ×7 (00:07→23:39)
[2022-01-04 06:36] LABS: Basophils % 0.3 %; Eosinophils # 0.3 K/mcL (0.0-0.6); Eosinophils % 2.1 %; Hematocrit 40.2 % (37.5-50.1); Hemoglobin 13.5 g/dL (12.9-16.9); Immature Granulocytes % 1.3 % (0-4); Lymphocytes # 2.9 K/mcL (0.6-4.6); Lymphocytes % 24.9 %; Mean Corpuscular HGB Conc 33.6 g/dL (31.6-35.5); Mean Corpuscular Hemoglobin 30.3 pg (28.0-33.3); Mean Corpuscular Volume 90.3 fL (83.0-100.0); Mean Platelet Volume 10.5 fL (9.4-12.4); Monocytes # 0.7 K/mcL (0.0-1.3); Monocytes % 6.3 %; Neutrophils # 7.6 K/mcL (1.6-8.9); Platelet Count 227 K/mcL (140-400); Red Blood Count 4.45 M/mcL (4.19-5.50); Red Cell Distribution Width 13.9 % (11.5-14.5); Segmented Neutrophils % 65.1 %; White Blood Count 11.7 K/mcL (4.3-11.1)
[2022-01-04 07:29] LABS: BUN/Creatinine Ratio 25 (6-26); Blood Urea Nitrogen 21 mg/dL (8-23); Calcium 8.1 mg/dL (8.6-10.3); Carbon Dioxide 24 mEq/L (23-29); Chloride 99 mEq/L (98-107); Glucose 138 mg/dL (70-105); Osmolality,Calculated 283 (280-300); Potassium 3.5 mEq/L (3.5-5.1); Sodium 134 mEq/L (136-145); eGFR For African Americans > 60 (> 60); eGFR For Non-African Americans > 60 (> 60)
[2022-01-04] MEDS: polyethylene glycoL 3350 17 GM POWD.PACK PO SCH (07:56)
[2022-01-04] MEDS: Apixaban 5 MG TABLET PO SCH ×2 (07:56→19:35)
[2022-01-04] MEDS: Furosemide 20 MG/2 ML VIAL IVP SCH ×2 (07:56→15:55)
[2022-01-04] MEDS: Sennosides/Docusate Sodium TABLET PO SCH (19:35)
[2022-01-05 01:51] LABS: Basophils % 0.3 %; Eosinophils # 0.4 K/mcL (0.0-0.6); Eosinophils % 3.2 %; Hematocrit 41.3 % (37.5-50.1); Hemoglobin 14.2 g/dL (12.9-16.9); Immature Granulocytes % 1.7 % (0-4); Lymphocytes # 2.2 K/mcL (0.6-4.6); Lymphocytes % 20.7 %; Mean Corpuscular HGB Conc 34.4 g/dL (31.6-35.5); Mean Corpuscular Hemoglobin 30.9 pg (28.0-33.3); Mean Platelet Volume 10.2 fL (9.4-12.4); Monocytes # 0.7 K/mcL (0.0-1.3); Neutrophils # 7.3 K/mcL (1.6-8.9); Platelet Count 199 K/mcL (140-400); Red Blood Count 4.59 M/mcL (4.19-5.50); Red Cell Distribution Width 13.7 % (11.5-14.5); Segmented Neutrophils % 68.1 %; White Blood Count 10.8 K/mcL (4.3-11.1)
[2022-01-05 02:45] LABS: Alanine Aminotransferase 81 Units/L (7-52); Albumin 2.9 g/dL (3.5-5.7); Albumin/Globulin Ratio 1.2 (1.1-2.2); Alkaline Phosphatase 61 Units/L (34-104); Aspartate Amino Transferase 27 Units/L (13-39); BUN/Creatinine Ratio 25 (6-26); Bilirubin,Total 0.8 mg/dL (0.3-1.0); Blood Urea Nitrogen 21 mg/dL (8-23); Carbon Dioxide 27 mEq/L (23-29); Chloride 99 mEq/L (98-107); Globulin 2.4 g/dL (2.4-3.5); Glucose 116 mg/dL (70-105); Osmolality,Calculated 284 (280-300); Potassium 3.7 mEq/L (3.5-5.1); Sodium 135 mEq/L (136-145); Total Protein 5.3 g/dL (6.4-8.9); eGFR For African Americans > 60 (> 60); eGFR For Non-African Americans > 60 (> 60)
[2022-01-05] MEDS: Ipratropium/Albuterol Neb 3 ML IH SCH ×6 (03:51→23:52)
[2022-01-05] MEDS: Sennosides/Docusate Sodium TABLET PO SCH ×2 (08:26→19:51)
[2022-01-05] MEDS: Apixaban 5 MG TABLET PO SCH ×2 (08:26→19:52)
[2022-01-05] MEDS: Furosemide 20 MG/2 ML VIAL IVP SCH (08:27)
[2022-01-05] MEDS: Furosemide 40 MG/4 ML VIAL IVP SCH (17:56)
[2022-01-06 03:57] LABS: Basophils # 0.1 K/mcL (0.0-0.2); Basophils % 0.4 %; Eosinophils # 0.3 K/mcL (0.0-0.6); Eosinophils % 2.6 %; Hematocrit 42.5 % (37.5-50.1); Hemoglobin 14.1 g/dL (12.9-16.9); Immature Granulocytes % 1.5 % (0-4); Lymphocytes # 2.5 K/mcL (0.6-4.6); Lymphocytes % 21.5 %; Mean Corpuscular HGB Conc 33.2 g/dL (31.6-35.5); Mean Corpuscular Hemoglobin 29.9 pg (28.0-33.3); Mean Corpuscular Volume 90.2 fL (83.0-100.0); Mean Platelet Volume 10.6 fL (9.4-12.4); Monocytes # 0.8 K/mcL (0.0-1.3); Monocytes % 6.8 %; Neutrophils # 7.8 K/mcL (1.6-8.9); Platelet Count 204 K/mcL (140-400); Red Blood Count 4.71 M/mcL (4.19-5.50); Red Cell Distribution Width 13.8 % (11.5-14.5); Segmented Neutrophils % 67.2 %; White Blood Count 11.7 K/mcL (4.3-11.1)
[2022-01-06 04:22] LABS: Alanine Aminotransferase 62 Units/L (7-52); Albumin 2.9 g/dL (3.5-5.7); Albumin/Globulin Ratio 1.1 (1.1-2.2); Alkaline Phosphatase 56 Units/L (34-104); Aspartate Amino Transferase 23 Units/L (13-39); BUN/Creatinine Ratio 17 (6-26); Blood Urea Nitrogen 15 mg/dL (8-23); Calcium 8.4 mg/dL (8.6-10.3); Carbon Dioxide 30 mEq/L (23-29); Chloride 97 mEq/L (98-107); Globulin 2.6 g/dL (2.4-3.5); Glucose 109 mg/dL (70-105); Osmolality,Calculated 281 (280-300); Sodium 135 mEq/L (136-145); Total Protein 5.5 g/dL (6.4-8.9); eGFR For African Americans > 60 (> 60); eGFR For Non-African Americans > 60 (> 60)
[2022-01-06] MEDS: Ipratropium/Albuterol Neb 3 ML IH SCH ×6 (04:25→23:53)
[2022-01-06] MEDS: Furosemide 40 MG/4 ML VIAL IVP SCH ×2 (08:49→18:24)
[2022-01-06] MEDS: Apixaban 5 MG TABLET PO SCH ×2 (08:49→22:01)
[2022-01-06] MEDS: Sennosides/Docusate Sodium TABLET PO SCH ×2 (08:49→22:01)
[2022-01-07] MEDS: Ipratropium/Albuterol Neb 3 ML IH SCH ×5 (04:36→19:33)
[2022-01-07 07:04] LABS: Basophils # 0.1 K/mcL (0.0-0.2); Basophils % 0.5 %; Eosinophils # 0.3 K/mcL (0.0-0.6); Eosinophils % 2.8 %; Hematocrit 40.9 % (37.5-50.1); Hemoglobin 14.1 g/dL (12.9-16.9); Immature Granulocytes % 1.3 % (0-4); Lymphocytes # 2.5 K/mcL (0.6-4.6); Lymphocytes % 23.3 %; Mean Corpuscular HGB Conc 34.5 g/dL (31.6-35.5); Mean Corpuscular Hemoglobin 30.7 pg (28.0-33.3); Mean Corpuscular Volume 88.9 fL (83.0-100.0); Mean Platelet Volume 10.1 fL (9.4-12.4); Monocytes # 0.8 K/mcL (0.0-1.3); Monocytes % 7.6 %; Platelet Count 183 K/mcL (140-400); Red Cell Distribution Width 13.8 % (11.5-14.5); Segmented Neutrophils % 64.5 %; White Blood Count 10.9 K/mcL (4.3-11.1)
[2022-01-07 07:23] LABS: Alanine Aminotransferase 49 Units/L (7-52); Albumin/Globulin Ratio 1.1 (1.1-2.2); Alkaline Phosphatase 67 Units/L (34-104); Aspartate Amino Transferase 20 Units/L (13-39); BUN/Creatinine Ratio 18 (6-26); Bilirubin,Total 1.1 mg/dL (0.3-1.0); Blood Urea Nitrogen 15 mg/dL (8-23); Calcium 8.2 mg/dL (8.6-10.3); Carbon Dioxide 30 mEq/L (23-29); Chloride 96 mEq/L (98-107); Globulin 2.7 g/dL (2.4-3.5); Glucose 133 mg/dL (70-105); Osmolality,Calculated 277 (280-300); Potassium 3.6 mEq/L (3.5-5.1); Sodium 132 mEq/L (136-145); Total Protein 5.7 g/dL (6.4-8.9); eGFR For African Americans > 60 (> 60); eGFR For Non-African Americans > 60 (> 60)
[2022-01-07] MEDS: Sennosides/Docusate Sodium TABLET PO SCH ×2 (07:55→22:03)
[2022-01-07] MEDS: Apixaban 5 MG TABLET PO SCH ×2 (07:56→22:03)
[2022-01-07] MEDS: Furosemide 40 MG/4 ML VIAL IVP SCH ×2 (07:56→16:52)
[2022-01-08 01:51] LABS: Basophils # 0.1 K/mcL (0.0-0.2); Basophils % 0.4 %; Eosinophils # 0.3 K/mcL (0.0-0.6); Eosinophils % 2.5 %; Hemoglobin 14.6 g/dL (12.9-16.9); Immature Granulocytes % 1.5 % (0-4); Lymphocytes # 2.7 K/mcL (0.6-4.6); Lymphocytes % 22.8 %; Mean Corpuscular HGB Conc 34.8 g/dL (31.6-35.5); Mean Corpuscular Volume 89.2 fL (83.0-100.0); Mean Platelet Volume 10.7 fL (9.4-12.4); Monocytes # 0.9 K/mcL (0.0-1.3); Monocytes % 7.6 %; Neutrophils # 7.6 K/mcL (1.6-8.9); Platelet Count 196 K/mcL (140-400); Red Blood Count 4.71 M/mcL (4.19-5.50); Red Cell Distribution Width 13.5 % (11.5-14.5); Segmented Neutrophils % 65.2 %; White Blood Count 11.7 K/mcL (4.3-11.1)
[2022-01-08 02:09] LABS: BUN/Creatinine Ratio 19 (6-26); Blood Urea Nitrogen 18 mg/dL (8-23); Calcium 8.4 mg/dL (8.6-10.3); Carbon Dioxide 31 mEq/L (23-29); Chloride 95 mEq/L (98-107); Glucose 110 mg/dL (70-105); Osmolality,Calculated 279 (280-300); Potassium 3.6 mEq/L (3.5-5.1); Sodium 133 mEq/L (136-145); eGFR For African Americans > 60 (> 60); eGFR For Non-African Americans > 60 (> 60)
[2022-01-08] MEDS: Ipratropium/Albuterol Neb 3 ML IH SCH ×7 (04:38→23:43)
[2022-01-08] MEDS: Furosemide 40 MG/4 ML VIAL IVP SCH ×3 (09:16→16:26)
[2022-01-08] MEDS: Apixaban 5 MG TABLET PO SCH ×2 (09:17→20:26)
[2022-01-08] MEDS: Sennosides/Docusate Sodium TABLET PO SCH ×2 (09:17→20:27)
[2022-01-09] MEDS: Ipratropium/Albuterol Neb 3 ML IH SCH ×5 (03:59→20:58)
[2022-01-09 05:04] LABS: Basophils % 0.3 %; Eosinophils # 0.3 K/mcL (0.0-0.6); Eosinophils % 3.8 %; Hematocrit 40.4 % (37.5-50.1); Lymphocytes # 1.8 K/mcL (0.6-4.6); Lymphocytes % 21.1 %; Mean Corpuscular HGB Conc 34.7 g/dL (31.6-35.5); Mean Corpuscular Hemoglobin 30.3 pg (28.0-33.3); Mean Corpuscular Volume 87.4 fL (83.0-100.0); Mean Platelet Volume 10.7 fL (9.4-12.4); Monocytes # 0.8 K/mcL (0.0-1.3); Neutrophils # 5.6 K/mcL (1.6-8.9); Platelet Count 170 K/mcL (140-400); Red Blood Count 4.62 M/mcL (4.19-5.50); Red Cell Distribution Width 13.5 % (11.5-14.5); Segmented Neutrophils % 64.8 %; White Blood Count 8.6 K/mcL (4.3-11.1)
[2022-01-09 05:23] LABS: Alanine Aminotransferase 33 Units/L (7-52); Albumin 2.9 g/dL (3.5-5.7); Albumin/Globulin Ratio 1.1 (1.1-2.2); Alkaline Phosphatase 64 Units/L (34-104); Aspartate Amino Transferase 20 Units/L (13-39); BUN/Creatinine Ratio 19 (6-26); Blood Urea Nitrogen 15 mg/dL (8-23); Calcium 8.2 mg/dL (8.6-10.3); Carbon Dioxide 29 mEq/L (23-29); Chloride 96 mEq/L (98-107); Globulin 2.7 g/dL (2.4-3.5); Glucose 122 mg/dL (70-105); Osmolality,Calculated 276 (280-300); Potassium 3.4 mEq/L (3.5-5.1); Sodium 132 mEq/L (136-145); Total Protein 5.6 g/dL (6.4-8.9); eGFR For African Americans > 60 (> 60); eGFR For Non-African Americans > 60 (> 60)
[2022-01-09] MEDS ORDERED: Potassium Chloride Elixir 20 MEQ/15 ML UDC PO ONE (07:39)
[2022-01-09] MEDS: Apixaban 5 MG TABLET PO SCH ×2 (08:16→20:17)
[2022-01-09] MEDS: Sennosides/Docusate Sodium TABLET PO SCH ×2 (08:16→20:17)
[2022-01-09] MEDS: Furosemide 40 MG/4 ML VIAL IVP SCH ×2 (08:17→18:35)
[2022-01-10] MEDS: Ipratropium/Albuterol Neb 3 ML IH SCH ×6 (00:40→19:55)
[2022-01-10] MEDS: Apixaban 5 MG TABLET PO SCH ×2 (08:13→20:40)
[2022-01-10] MEDS: Furosemide 40 MG/4 ML VIAL IVP SCH (08:13)
[2022-01-10] MEDS: Sennosides/Docusate Sodium TABLET PO SCH ×2 (08:13→20:40)
[2022-01-11] MEDS: Ipratropium/Albuterol Neb 3 ML IH SCH ×7 (00:03→23:37)
[2022-01-11] MEDS: Apixaban 5 MG TABLET PO SCH ×2 (08:48→20:26)
[2022-01-11] MEDS: Sennosides/Docusate Sodium TABLET PO SCH ×2 (08:48→20:25)
[2022-01-11] MEDS: Furosemide 40 MG/4 ML VIAL IVP SCH (08:48)
[2022-01-12 02:48] LABS: Basophils % 0.4 %; Eosinophils # 0.4 K/mcL (0.0-0.6); Eosinophils % 4.8 %; Hematocrit 37.8 % (37.5-50.1); Hemoglobin 12.8 g/dL (12.9-16.9); Immature Granulocytes % 0.7 % (0-4); Lymphocytes # 2.3 K/mcL (0.6-4.6); Lymphocytes % 26.1 %; Mean Corpuscular HGB Conc 33.9 g/dL (31.6-35.5); Mean Corpuscular Volume 88.5 fL (83.0-100.0); Mean Platelet Volume 10.9 fL (9.4-12.4); Monocytes # 0.6 K/mcL (0.0-1.3); Monocytes % 6.9 %; Neutrophils # 5.4 K/mcL (1.6-8.9); Platelet Count 188 K/mcL (140-400); Red Blood Count 4.27 M/mcL (4.19-5.50); Red Cell Distribution Width 13.6 % (11.5-14.5); Segmented Neutrophils % 61.1 %; White Blood Count 8.9 K/mcL (4.3-11.1)
[2022-01-12 03:04] LABS: BUN/Creatinine Ratio 14 (6-26); Blood Urea Nitrogen 11 mg/dL (8-23); Calcium 8.3 mg/dL (8.6-10.3); Carbon Dioxide 26 mEq/L (23-29); Chloride 96 mEq/L (98-107); Glucose 114 mg/dL (70-105); Osmolality,Calculated 274 (280-300); Potassium 3.6 mEq/L (3.5-5.1); Sodium 132 mEq/L (136-145); eGFR For African Americans > 60 (> 60); eGFR For Non-African Americans > 60 (> 60)
[2022-01-12] MEDS: Ipratropium/Albuterol Neb 3 ML IH SCH ×6 (04:06→23:43)
[2022-01-12] MEDS: Furosemide 40 MG/4 ML VIAL IVP SCH (08:19)
[2022-01-12] MEDS: Sennosides/Docusate Sodium TABLET PO SCH ×2 (08:19→21:02)
[2022-01-12] MEDS: Apixaban 5 MG TABLET PO SCH ×2 (08:19→21:03)
[2022-01-13] MEDS: Ipratropium/Albuterol Neb 3 ML IH SCH ×6 (03:53→23:40)
[2022-01-13] MEDS: Sennosides/Docusate Sodium TABLET PO SCH ×2 (07:57→21:28)
[2022-01-13] MEDS: Furosemide 40 MG/4 ML VIAL IVP SCH (07:57)
[2022-01-13] MEDS: Apixaban 5 MG TABLET PO SCH ×2 (07:57→21:28)
[2022-01-13] MEDS: Furosemide 20 MG TABLET PO SCH (08:58)
[2022-01-14] MEDS ORDERED: Ipratropium/Albuterol Neb 3 ML IH PRN (04:08)
[2022-01-14] MEDS: Ipratropium/Albuterol Neb 3 ML IH SCH (04:29)
[2022-01-14] MEDS: Furosemide 20 MG TABLET PO SCH (08:11)
[2022-01-14] MEDS: Sennosides/Docusate Sodium TABLET PO SCH ×2 (08:11→20:46)
[2022-01-14] MEDS: Apixaban 5 MG TABLET PO SCH ×2 (08:11→20:45)
[2022-01-15 03:02] LABS: Basophils # 0.1 K/mcL (0.0-0.2); Basophils % 0.7 %; Eosinophils # 0.6 K/mcL (0.0-0.6); Hematocrit 37.7 % (37.5-50.1); Lymphocytes # 2.6 K/mcL (0.6-4.6); Lymphocytes % 31.8 %; Mean Corpuscular HGB Conc 34.5 g/dL (31.6-35.5); Mean Corpuscular Volume 86.9 fL (83.0-100.0); Mean Platelet Volume 10.2 fL (9.4-12.4); Monocytes # 0.6 K/mcL (0.0-1.3); Monocytes % 7.1 %; Neutrophils # 4.4 K/mcL (1.6-8.9); Platelet Count 210 K/mcL (140-400); Red Blood Count 4.34 M/mcL (4.19-5.50); Red Cell Distribution Width 13.4 % (11.5-14.5); Segmented Neutrophils % 52.4 %; White Blood Count 8.3 K/mcL (4.3-11.1)
[2022-01-15 03:24] LABS: BUN/Creatinine Ratio 15 (6-26); Blood Urea Nitrogen 12 mg/dL (8-23); Calcium 8.1 mg/dL (8.6-10.3); Carbon Dioxide 25 mEq/L (23-29); Chloride 97 mEq/L (98-107); Glucose 122 mg/dL (70-105); Osmolality,Calculated 275 (280-300); Potassium 3.2 mEq/L (3.5-5.1); Sodium 132 mEq/L (136-145); eGFR For African Americans > 60 (> 60); eGFR For Non-African Americans > 60 (> 60)
[2022-01-15] MEDS ORDERED: Potassium Chloride Elixir 20 MEQ/15 ML UDC PO ONE (07:48)
[2022-01-15] MEDS: Apixaban 5 MG TABLET PO SCH ×2 (09:36→20:01)
[2022-01-15] MEDS: Sennosides/Docusate Sodium TABLET PO SCH ×2 (09:39→20:01)
[2022-01-16] MEDS: Sennosides/Docusate Sodium TABLET PO SCH (07:53)
[2022-01-16] MEDS: Apixaban 5 MG TABLET PO SCH (07:54)
[2022-01-16 07:59] VITALS: O2SAT 89
[2022-01-16 10:43] VITALS: BP 113/85; PULSE 90; TEMP 98
== END 2022-01-16 18:39 | DRG 871 ==
LOC: EMEROOARM 11:15 → 3NENU 11:15 → SUATTDRO 13:47 → 3NENU 14:22 → SUATTDRO 14:22
PROVIDERS: ADMIT Family Medicine; ATTEND Student in an Organized Health Care Education/Training Program